=== PATIENT | male | born 1945 | race Caucasian/White ===

== ENCOUNTER 2016-12-01 15:31 | Emergency (ER) | payer MEDICARE, BC ==
[~2016-12-01] VITALS: Ht 172.7 cm; Wt 110.0 kg
[2016-12-01 15:33] VITALS: BP 177/82; PULSE 81; RESP 16; TEMP 98; O2SAT 96
[2016-12-01] MEDS ORDERED: LIPI10TA PO (15:46)
[2016-12-01] MEDS ORDERED: LOSA25TA PO (15:46)
[2016-12-01] MEDS ORDERED: OMEG1CAP53 PO (15:46)
[2016-12-01] MEDS ORDERED: ALLO300T2 PO (15:46)
[2016-12-01] MEDS ORDERED: FENO48TA PO (15:46)
[2016-12-01] MEDS ORDERED: SODIUM CHLOR 0.9% 1000 ML INJ 1,000 ML IV SCH (16:04)
--- NOTE | 2016-12-01 16:06 | PD ---
HPI Chief Complaint: Flank/Kidney Pain Time Seen by Provider: 15:57 Travel History International Travel<30 days: No Contact w/Intl Traveler<30days: No Traveled to known affect area: No History of Present Illness HPI 71-year-old male with history of kidney stones presents for evaluation of left flank pain that started today. Patient reports that the pain is an ache, constant, no modifying factors, feels similar to previous kidney stones, radiates to his left lower abdomen. No nausea or vomiting. He has noted some blood in his urine. He has had a cough for the last 3 weeks and was treated with antibiotics, however the cough has been persistent. PFSH Past Medical History Kidney Stones: Yes Past Surgical History Other Surgery: Yes (lithotripsy) Social History Alcohol Use: No Tobacco Use: No Substance Use: No Allergies-Medications (Allergen,Severity, Reaction): Coded Allergies: No Known Allergies (Unverified , 12/01/16) Reported Meds & Prescriptions Reported Meds & Active Scripts Active Reported Lovaza (Asvau-4-Izrt Ethyl Esters) 1 Gm Cap 2 Gm PO BID Fenofibrate 48 Mg Tab Unknown Dose PO DAILY Lipitor (Atorvastatin Calcium) 10 Mg Tab Unknown Dose PO HS Losartan (Losartan Potassium) 25 Mg Tab Unknown Dose PO DAILY Allopurinol 300 Mg Tab 300 Mg PO DAILY Review of Systems Except as stated in HPI: all other systems reviewed are Neg Physical Exam Narrative GENERAL: Well-developed, well-nourished, comfortable, no acute distress. SKIN: Warm and dry. No rash. HEAD: Atraumatic. Normocephalic. EYES: Pupils equal and round. No scleral icterus. No injection or drainage. ENT: Mucous membranes pink and moist. CARDIOVASCULAR: Regular rate and rhythm. Distal pulses brisk and equal bilaterally. RESPIRATORY: No accessory muscle use. Clear to auscultation. Breath sounds equal bilaterally. GASTROINTESTINAL: Abdomen soft, non-tender, nondistended. MUSCULOSKELETAL: No obvious deformities. No clubbing. No cyanosis. No edema. No midline vertebral step-off or tenderness. No CVA tenderness. NEUROLOGICAL: Awake and alert. No obvious cranial nerve deficits. Motor grossly within normal limits. Normal speech. PSYCHIATRIC: Appropriate mood and affect; insight and judgment normal. Data Data Last Documented VS Vital Signs Date Time Temp Pulse Resp B/P Pulse Ox O2 Delivery O2 Flow Rate FiO2 12/01/16 18:00 92 20 157/65 95 Room Air 12/01/16 15:33 98.0 Orders Complete Blood Count With Diff (12/01/16 16:04) Comprehensive Metabolic Panel (12/01/16 16:04) Lipase (12/01/16 16:04) Prothrombin Time / Inr (Pt) (12/01/16 16:04) Act Partial Throm Time (Ptt) (12/01/16 16:04) Urinalysis - C+S If Indicated (12/01/16 16:04) Ct Abd/Pel W/O Iv Contrast (12/01/16 16:04) Iv Access Insert/Monitor (12/01/16 16:04) Ecg Monitoring (12/01/16 16:04) Oximetry (12/01/16 16:04) Morphine Inj (Morphine Inj) (12/01/16 16:15) Ondansetron Inj (Zofran Inj) (12/01/16 16:15) Sodium Chlor 0.9% 1000 Ml Inj (Ns 1000 M (12/01/16 16:04) Sodium Chloride 0.9% Flush (Ns Flush) (12/01/16 16:15) Influenzae A/B Antigen (12/01/16 16:04) Chest, Single Ap (12/01/16 16:04) Albuterol-Ipratropium Neb (Duoneb Neb) (12/01/16 16:15) Tamsulosin (Flomax) (12/01/16 18:30) Ketorolac Inj (Toradol Inj) (12/01/16 18:30) Labs Laboratory Tests Test 12/01/16 12/01/16 16:00 17:20 White Blood Count 9.0 TH/MM3 Red Blood Count 5.09 MIL/MM3 Hemoglobin 14.9 GM/DL Hematocrit 44.1 % Mean Corpuscular Volume 86.6 FL Mean Corpuscular Hemoglobin 29.4 PG Mean Corpuscular Hemoglobin 33.9 % Concent Red Cell Distribution Width 13.7 % Platelet Count 160 TH/MM3 Mean Platelet Volume 7.9 FL Neutrophils (%) (Auto) 70.2 % Lymphocytes (%) (Auto) 15.7 % Monocytes (%) (Auto) 11.1 % Eosinophils (%) (Auto) 2.3 % Basophils (%) (Auto) 0.7 % Neutrophils # (Auto) 6.3 TH/MM3 Lymphocytes # (Auto) 1.4 TH/MM3 Monocytes # (Auto) 1.0 TH/MM3 Eosinophils # (Auto) 0.2 TH/MM3 Basophils # (Auto) 0.1 TH/MM3 CBC Comment DIFF FINAL Differential Comment Prothrombin Time 10.9 SEC Prothromb Time International 1.0 RATIO Ratio Activated Partial 23.8 SEC Thromboplast Time Sodium Level 139 MEQ/L Potassium Level 4.3 MEQ/L Chloride Level 107 MEQ/L Carbon Dioxide Level 23.6 MEQ/L Anion Gap 8 MEQ/L Blood Urea Nitrogen 16 MG/DL Creatinine 1.06 MG/DL Estimat Glomerular Filtration 69 ML/MIN Rate Random Glucose 130 MG/DL Calcium Level 8.6 MG/DL Total Bilirubin 0.7 MG/DL Aspartate Amino Transf 50 U/L (AST/SGOT) Alanine Aminotransferase 51 U/L (ALT/SGPT) Alkaline Phosphatase 50 U/L Total Protein 6.9 GM/DL Albumin 3.7 GM/DL Lipase 693 U/L Urine Color YELLOW Urine Turbidity CLEAR Urine pH 6.5 Urine Specific [place] 1.007 Urine Protein NEG mg/dL Urine Glucose (UA) NEG mg/dL Urine Ketones NEG mg/dL Urine Occult Blood MOD Urine Nitrite NEG Urine Bilirubin NEG Urine Urobilinogen LESS THAN 2.0 MG/DL Urine Leukocyte Esterase NEG Urine RBC 29 /hpf Urine WBC 2 /hpf Urine Yeast (Budding) Microscopic Urinalysis Comment CULT NOT INDICATED MDM Medical Decision Making Medical Screen Exam Complete: Yes Emergency Medical Condition: Yes Differential Diagnosis Nephrolithiasis, pyelonephritis, UTI, cystitis, diverticulitis, dissection less likely Narrative Course Vital signs reviewed. CBC is unremarkable. CMP is unremarkable. Lipase is 693. UA shows moderate occult blood, [address] abdomen pelvis: CONCLUSION: 6 mm obstructing stone at the left UPJ with perinephric stranding evident. Patient was made aware of all findings. He is feeling a lot better after morphine and states his pain has resolved. He has an appointment with a urologist this week with Dr. Baptiste. He reports history of elevated triglycerides which is likely contributing to his elevated lipase. His abdominal exam is benign. He denies alcohol abuse. He prefers to be discharged home. I believe he is stable for discharge home with outpatient follow-up with his urologist this week. He was informed on when to return to the emergency department. He verbalizes understanding and agreement with plan. Diagnosis Primary Impression: Ureterolithiasis Additional Impression: Elevated lipase Referrals: Urologist 3 days Additional Instructions: Follow-up with your urologist as scheduled. Take medications as prescribed. Return to the emergency department for worsening symptoms or any other concerns as discussed. Scripts Ondansetron Odt (Zofran Odt)4 Mg Tab4 Mg SL Q8HR PRN (Nausea/Vomiting) #20 TAB Ref 0 Prov:Kulwant Jimenez MD 12/01/16 Oxycodone-Acetaminophen (Percocet)5-325 mg Tab1 Tab PO Q6H PRN (PAIN) #15 TAB Ref 0 Prov:Kulwant Jimenez MD 12/01/16 Tamsulosin (Flomax)0.4 Mg Cap0.4 Mg PO HS 14 Days Ref 0 Prov:Kulwant Jimenez MD 12/01/16 Disposition: 01 DISCHARGE HOME Condition: Stable Kulwant Jimenez MD Dec 01, 2016 16:06
[2016-12-01] MEDS ORDERED: SODIUM CHLORIDE 0.9% FLUSH 5 ML FLUSH IVF PRN (16:15)
[2016-12-01] MEDS ORDERED: ONDANSETRON HCL 4 MG/2 ML VIAL IVP ONE (16:15)
[2016-12-01] MEDS ORDERED: MORPHINE SULFATE 4 MG/ML INJ IV PUSH ONE (16:15)
[2016-12-01 16:28] LABS: AUTOMATED NEUTROPHIL # 6.3 TH/MM3 (1.8-7.7); BASOPHIL # 0.1 TH/MM3 (0-0.2); BASOPHIL % 0.7 % (0.0-2.0); EOSINOPHIL # 0.2 TH/MM3 (0-0.4); EOSINOPHIL % 2.3 % (0.0-4.0); HEMATOCRIT 44.1 % (39.0-51.0); HEMO FLAGS DIFF FINAL; LYMPH % 15.7 % (9.0-44.0); LYMPHOCYTE # 1.4 TH/MM3 (1.0-4.8); MEAN CELL VOLUME 86.6 FL (80.0-100.0); MEAN CORPUSCULAR HEMOGLOBIN 29.4 PG (27.0-34.0); MEAN CORPUSCULAR HGB CONC 33.9 % (32.0-36.0); MONO % 11.1 % (0.0-8.0); NEUT % 70.2 % (16.0-70.0); PLATELET COUNT 160 TH/MM3 (150-450); RED BLOOD COUNT 5.09 MIL/MM3 (4.50-5.90); RED CELL DISTRIBUTION WIDTH 13.7 % (11.6-17.2)
--- NOTE | 2016-12-01 16:33 | RADRPT ---
EXAM DATE/TIME: 12/01/2016 16:06 [facility] COMPARISON: No previous studies available for comparison. INDICATIONS : Shortness of breath. MEDICAL HISTORY : Bronchitis. SURGICAL HISTORY : None. ENCOUNTER: Initial ACUITY: 3 weeks PAIN SCORE: 0/10 LOCATION: Bilateral chest FINDINGS: The lungs are clear. The heart is minimally enlarged. The pulmonary vascularity is normal. There is n o evidence for infiltrate or failure. The portion of the bony skeleton visualized is unremarkable. CONCLUSION: Completed cardiomegaly without overt failure. Parker Sales MD FACR on December 01, 2016 at 16:32 Board Certified Radiologist. This report was verified electronically.
[2016-12-01 16:36] LABS: APTT (PATIENT) 23.8 SEC (24.3-30.1); PROTHROMBIN TIME - PATIENT 10.9 SEC (9.8-11.6)
[2016-12-01] MEDS: RESP: ALBUTEROL 2.5 MG/IPRATROPIUM 0.5 MG NEB (SCH) INH ×2 (16:52→16:53)
--- NOTE | 2016-12-01 16:52 | RADRPT ---
EXAM DATE/TIME: 12/01/2016 16:31 [facility] COMPARISON: No previous studies available for comparison. INDICATIONS : Left flank pain. ORAL CONTRAST: No oral contrast ingested. RADIATION DOSE: 12.26 CTDIvol (mGy) MEDICAL HISTORY : Renal calculi. SURGICAL HISTORY : None. ENCOUNTER: Initial ACUITY: 1 day PAIN SCALE: 8/10 LOCATION: Left flank TECHNIQUE: Volumetric scanning of the abdomen and pelvis was performed. Using automated exposure control and ad justment of the mA and/or kV according to patient size, radiation dose was kept as low as reasonably achievable to obtain optimal diagnostic quality images. FINDINGS: The lung bases are clear. The liver is free of focal defects. There is a stone in the gallbladder, without inflammatory changes. The pancreas is unremarkable. The spleen appears normal. There is an apparent cysts projected from the mid portion of the right kidney measuring 4.3 cm, incom pletely evaluated on today's study. There is perinephric stranding about the left kidney with a 6 mm stone at the left ureteropelvic junc tion. Moderate vascular calcifications are noted. Pelvic contents are unremarkable. Prostatic calcifications are noted. CONCLUSION: 6 mm obstructing stone at the left UPJ with perinephric stranding evident. Parker Sales MD FACR on December 01, 2016 at 16:43 Board Certified Radiologist. This report was verified electronically.
[2016-12-01 17:00] VITALS: BP 184/93; PULSE 90; RESP 20; O2SAT 98
[2016-12-01 17:03] LABS: ALKALINE PHOSPHATASE 50 U/L (45-117); TOTAL BILIRUBIN ADULT 0.7 MG/DL (0.2-1.0)
[2016-12-01 17:04] LABS: ALT (GPT) 51 U/L (12-78); ANION GAP 8 MEQ/L (5-15); AST (GOT) 50 U/L (15-37); BICARBONATE 23.6 MEQ/L (21.0-32.0); BLOOD UREA NITROGEN 16 MG/DL (7-18); CHLORIDE 107 MEQ/L (98-107); GLOMERULAR FILTRATION RATE 69 ML/MIN (>89); SODIUM (NA) 139 MEQ/L (136-145)
[2016-12-01 17:05] LABS: POTASSIUM 4.3 MEQ/L (3.5-5.1)
[2016-12-01 17:53] LABS: BLOOD, URINE MOD (NEG); COMMENT (UR) CULT NOT INDICATED; CULTURE IF INDICATED CULT NOT INDICATED; GLUCOSE,URINE NEG (NEG); KETONE, URINE NEG (NEG); NITRITE,URINE NEG (NEG); PH, URINE 6.5 (5.0-8.5); URINE COLOR YELLOW (YELLW/STRAW)
[2016-12-01 18:00] VITALS: BP 157/65; PULSE 92; RESP 20; O2SAT 95
[2016-12-01] MEDS ORDERED: KETOROLAC TROMETHAMINE 30 MG/ML (IVP) VIAL IV PUSH ONE (18:30)
[2016-12-01] MEDS ORDERED: TAMSULOSIN HCL 0.4 MG CAP PO ONE (18:30)
[2016-12-01] MEDS ORDERED: ZOFR4TAB3 SL (18:39)
[2016-12-01] MEDS ORDERED: PERC5TAB12 PO (18:39)
[2016-12-01] MEDS ORDERED: TAMS5CAP PO (18:39)
[2017-01-03] MEDS ORDERED: CARV3.12 PO (07:30)
== END 2016-12-01 19:01 | disposition home or self-care (01) ==
LOC: NEPA 15:31
DX: N20.1 Calculus of ureter (principal); R74.8 Abnormal levels of other serum enzymes; Z87.442 Personal history of urinary calculi; R05 Cough
CPT/HCPCS: 71010; 74176; 80053; 81001; 83690; 85025; 85610; 85730; 87804; 94640; 94664; 96361; 96374; 96375; 99284; J1885; J2270; J2405; J7030

== ENCOUNTER → 2016-12-24 | Outpatient (CLI) | payer MEDICARE, BC ==
[~2016-12-24] MED LIST: ALLO300T2 PO; CARV3.12 PO; FENO48TA PO; LIPI10TA PO; LOSA25TA PO; OMEG1CAP53 PO; PERC5TAB12 PO; TAMS5CAP PO; ZOFR4TAB3 SL
[2016-12-24 12:24] LABS: PROTHROMBIN TIME - PATIENT 11.1 SEC (9.8-11.6)
[2016-12-24 12:38] LABS: BICARBONATE 26.2 MEQ/L (21.0-32.0); POTASSIUM 3.9 MEQ/L (3.5-5.1)
[2016-12-24 12:43] LABS: BLOOD, URINE MOD (NEG); COMMENT (UR) CULT NOT INDICATED; CULTURE IF INDICATED CULT NOT INDICATED; GLUCOSE,URINE NEG (NEG); KETONE, URINE NEG (NEG); NITRITE,URINE NEG (NEG); PH, URINE 5.5 (5.0-8.5); URINE COLOR YELLOW (YELLW/STRAW)
== END ==
LOC: CPRE 10:23
PROVIDERS: ATTEND Orthopaedic Surgery
DX: Z01.810 Encounter for preprocedural cardiovascular examination (principal); Z01.811 Encounter for preprocedural respiratory examination; Z01.812 Encounter for preprocedural laboratory examination; S83.272A Complex tear of lateral meniscus, current injury, left knee, initial encounter; X58.XXXA Exposure to other specified factors, initial encounter
CPT/HCPCS: 36415; 80048; 81001; 85610

== ENCOUNTER → 2017-01-03 | Day surgery (SDC) | payer MEDICARE, BC ==
--- NOTE | 2016-12-25 10:50 | MH ---
cc: NADEEM MONSON DATE OF ADMISSION: 01/03/2017 ADMITTING DIAGNOSIS Complex tear lateral meniscus, left knee. Chondromalacia, left knee. Effusion, left knee. Popliteal cyst, left knee. Pain, left knee. HISTORY The patient is a 71-year-old white male who has experienced a 2-year history of pain involving his left knee. He had noted the onset of his symptoms while on vacation and hiking across a stream and he slipped and fell sustaining a stress injury to his knee. He did not seek any immediate evaluation or treatment but did take ibuprofen for pain management and over the following few months he experienced what he felt was a trend of improvement. Over the following years he noted occasional episodes of pain for which he had been evaluated by his primary care physician. He was diagnosed as having a possible meniscal injury but was encouraged to conform to conservative management for which he did wear an orthotic support. Within the past several months he began to experience an increasing level of pain about his knee and when seen in more recent follow-up by his primary care physician he was scheduled to undergo MRI scan evaluation. Results of the study did identify a complex tear involving the posterior horn of the lateral meniscus as well as chondromalacia throughout the lateral compartment. A moderate sized joint effusion was associated with a small Zarate's cyst. The patient was thereafter seen by the undersigned physician in the early part of December and at that time he described ongoing pain about his left knee, although, he was trying to swim as part of an exercise program. His overall clinical findings at that time were felt to be consistent with an internal derangement of the left knee for which findings and treatment options were reviewed. The pros and cons of continuing with conservative management versus operative intervention that would involve arthroscopic surgery were outlined in detail. Emphasis was made regarding the fact that the decision to proceed with surgery would be left entirely to the patient's discretion. The patient considered his options in this regard and subsequently returned to the office in follow-up disposition expressing his desire to proceed accordingly. In compliance with his wishes he is currently being admitted in order that the above be accomplished. PAST MEDICAL HISTORY His past medical history, hospitalizations and surgeries have included lithotripsy for history of renal lithiasis, lumbar laminectomy x2, operative intervention of the right great toe for history of ingrown toenail, hemorrhoidectomy and fissurectomy, septoplasty, tonsillectomy, bilateral cataract excision with intraocular lens implants and colonoscopy. The patient's medical illnesses include hypertension, gout, elevated cholesterol and sleep apnea. MEDICATIONS Current medications 1. Losartan 100 milligrams daily. 2. Allopurinol 300 milligrams daily. 3. Lipitor 20 milligrams daily. 4. Fenofibrate 160 milligrams daily. 5. Lovaza 4000 milligrams 1/2 in the morning and one half at night. Supplemental medications include 1. Osteo Bilateral-Flex. 2. Biotin. 3. Magnesium. 4. Niacin. 5. COQ10. 6. Multivitamin. ALLERGIES The patient denies any known drug allergies. REVIEW OF SYSTEMS He does wear glasses. Denies headache, seizure or syncope. No sinus congestion or epistaxis. Auditory acuity intact. No tinnitus. No bleeding gums or dysphagia. Denies cough, shortness of breath, upper respiratory infection or tuberculosis. He has had a history of bronchitis as well as current sleep apnea. No angina or heart disease. He is medically managed for hypertension. His appetite is good. Bowel movements are regular. No hepatitis, gallbladder disease or ulcers. There is a positive history of hemorrhoids. No urinary tract infection. Positive history of kidney stones. No prostate disease. Fractures of the right hand and right forearm treated by cast immobilization. No psychiatric illness. His remaining review of systems is unremarkable and noncontributory. FAMILY HISTORY The patient has been 47 years. His is 71 years of age and described as being in good health. He has one son and one daughter both indicated to be in good health. Family history is positive for hypertension, diabetes, heart disease, COPD and prostate cancer. SOCIAL HISTORY The patient completed his graduate and master's degree. He is a retired construction engineer. He denies active use of tobacco, ethanol consumption in a very limited and social basis. PHYSICAL EXAMINATION Height 5 feet 8 inches, weight 250 pounds. GENERAL: An alert, oriented and responsive 71-year-old white male who sits quietly upon the examination table with no obvious distress. HEENT: Pupils are equally round and reactive to light. Extraocular movements full. Sclerae clear. External nares clear. External auditory canals clear. Dental intact. Mucous membranes pink and moist. Pharynx clear. NECK: Neck is supple. Active range of motion without appreciable pain. Carotid pulse bilaterally. Trachea midline. Thyroid without enlargement. LUNGS: Clear to auscultation and percussion. No CVA tenderness. No discomfort throughout the dorsal lumbar spine. HEART: Regular rhythm. No murmur or gallop. ABDOMEN: Abdomen is mildly obese, soft, nontender. Bowel sounds present. RECTAL: Per primary care physician. EXTREMITIES: Left knee, no obvious swelling or effusion. There is mild tenderness along the posterolateral aspect of the knee joint without palpable deformity. Apprehension and compression sign are negative. There is slight limitation of mobility at the extreme of flexion without crepitation or instability. No collateral ligamentous laxity. Justo test and drawer sign negative. Pivot shift and aMlik sign minimally positive for lateral compartment pain. Straight-leg raising unremarkable at 80 degrees, satisfactory mobility of the left hip with no associated pain. Independent gait. NEUROLOGIC: Cranial nerves II-XII grossly intact. IMPRESSION Complex tear lateral meniscus, left knee. Chondromalacia, left knee. Effusion, left knee. Popliteal cyst, left knee. Pain, left knee. PLAN Arthroscopic surgery and possible arthrotomy, left knee. The nature of the planned surgical procedure, the potential complications and risks associated, the expectations of surgery and the consent form were thoroughly reviewed with the patient prior to his admission to the hospital. Tomasz has indicated his full understanding regarding all of the above and given consent to proceed with treatment as outlined. Medical evaluation and clearance for surgery will be completed by his primary care physician, Dr. Gordo Oquendo. Nadeem Monson MD NBS/EO /6:15 PM /10:41 AM
[~2017-01-03] MED LIST changes: +ACETAMINOPHEN/HYDROcodone 325 MG/5 MG TAB PO PRN; +DO NOT ADM ANY ANTICOAGULANT DRUGS XX PRN; +FAMOTIDINE 20 MG/2 ML VIAL ONE; +INSULIN HUMAN REGULAR 1,000 UNITS/10 ML VIAL SQ PRN; +KETOROLAC TROMETHAMINE 60 MG/2 ML (IM) VIAL IM ONE; +LACTATED RINGER'S 1000 ML IV SCH; +LIDOCAINE HCL 2% PF SOLN 10 ML VIAL ONE; +METOPROLOL TARTRATE 25 MG TAB PO PRN; +MIDAZOLAM HCL 2 MG/2 ML VIAL ONE; +MORPHINE SULFATE 8 MG/ML INJ IM PRN; +ONDANSETRON HCL 4 MG/2 ML VIAL IV PUSH ONE; -PERC5TAB12 PO; +PHENYLEPH/NS 1000 MCG/10 ML SYR IV ONE; +POVIDONE IODINE 7.5% SCRUB 118 ML BOTTLE TOP SCH; +PROMETHAZINE INJ 25 MG/ML VIAL IM PRN; +PROPOFOL 200 MG/20 ML AMP IV ONE; +SODIUM CHLORID 0.9% 500 ML IV SCH; -TAMS5CAP PO; +TRIAMCINOLONE ACETONIDE 40 MG/ML VIAL I-SYNOVIAL ONE; -ZOFR4TAB3 SL; +ceFAZolin 2 GM PREMIX 50 ML IV SCH; +ceFAZolin 2 GM PREMIX 50 ML ONE; +ePHEDrine/NS 25 MG/5 ML SYR IV ONE; +fentaNYL CITRATE 250 MCG/5 ML AMP ONE
[2017-01-03 07:25] VITALS: BP 142/82; PULSE 73; RESP 18; TEMP 97.6; O2SAT 97
[2017-01-03 11:39] VITALS: BP 146/85; PULSE 67; RESP 16; TEMP 97.5; O2SAT 96
--- NOTE | 2017-01-04 17:07 | MP ---
cc: NADEEM ESCALANTE DATE OF SURGERY January 03, 2017 PREOPERATIVE DIAGNOSIS 1. Complex tear lateral meniscus left knee 2. Chondromalacia left knee 3. Effusion left knee 4. Popliteal cyst left knee 5. Pain of the left knee. POSTOPERATIVE DIAGNOSIS 1. Complex tear lateral meniscus left knee 2. Chondromalacia left knee 3. Effusion left knee 4. Popliteal cyst left knee 5. Pain of the left knee. PROCEDURE Partial lateral meniscectomy left knee SURGEON Mercy Escalante MD ANESTHESIA General by LMA FORMAT After satisfactory general anesthesia by LMA insertion as completed per the Department of Anesthesia, examination of the left knee revealed a satisfactory range of motion with no appreciable ligamentous instability. The extremity proper was positioned in the nursing surgical services director knee rosenberg, prepped with Betadine solution and draped into a sterile field in the routine manner. Prior to initiation of the actual procedure, the standard time-out protocol was completed. All parameters were appropriately addressed and confirmed by operating room personnel. Arthroscopic instrumentation was introduced through the stab wound utilizing a cannula with sharp and blunt trocar. The inflow irrigation by way of a medial suprapatellar portal, the arthroscope through a medial parapatellar portal, a probe through a lateral parapatellar portal. Examination of the suprapatellar pouch revealed mild reactive synovitis localized cartilaginous irregularity along the patellofemoral articulation consistent with chondromalacia was appreciated. Within the lateral compartment, a complex tear of the lateral meniscus with a displaced meniscal segment being extruded anteriorly about the intercondylar region. There was some associated articular changes consistent with localized chondromalacia. The anterior cruciate ligament was identified and noted to be intact. Examination of the medial compartment was without evidence of internal derangement. Attention was redirected to the lateral compartment utilizing both a biting suction forcep as well as a 4.0 aggressive resector. A partial lateral meniscectomy was accomplished as well as a generalized debridement throughout the lateral compartment. Upon completion of same, the joint space was thoroughly lavaged and suctioned dry. An intra-articular Kenalog lidocaine injection was completed. Portal sites were reapproximated with Steri-Strips over which Xeroform gauze and a bulky dry sterile dressing were placed. Anesthesia was discontinued. The patient thus transferred to a hospital stretcher and returned to the recovery room in satisfactory condition having tolerated his operative procedure well. Estimated blood loss was less than 10 mL. MD TIEN Sharp/SA /10:21 AM /4:56 PM
== END | disposition home or self-care (01) ==
LOC: HSDC 06:09
PROVIDERS: ATTEND Orthopaedic Surgery
DX: S83.282A Other tear of lateral meniscus, current injury, left knee, initial encounter (principal); M94.262 Chondromalacia, left knee; M71.22 Synovial cyst of popliteal space [Baker], left knee; I10 Essential (primary) hypertension; G47.30 Sleep apnea, unspecified; E78.00 Pure hypercholesterolemia, unspecified; M10.9 Gout, unspecified; W01.0XXA Fall on same level from slipping, tripping and stumbling without subsequent striking against object, initial encounter; Z87.442 Personal history of urinary calculi
CPT/HCPCS: 01400; 29881; J0690; J1885; J2250; J2370; J2405; J3010; J3301